=== PATIENT | male | born 1975 | race Caucasian/White ===

== ENCOUNTER 2019-08-26 16:57 | Emergency (ER) | payer OTHER ==
[~2019-08-26] VITALS: Ht 167.6 cm; Wt 104.3 kg
[2019-08-26 17:05] VITALS: Ht 167.6 cm; Wt 104.3 kg
[2019-08-26 20:40] VITALS: BP 167/111
== END 2019-08-26 20:41 | disposition other institution (70) ==
LOC: ED 16:57
DX: Z13.9 Encounter for screening, unspecified (principal); E11.65 Type 2 diabetes mellitus with hyperglycemia; F17.210 Nicotine dependence, cigarettes, uncomplicated; I10 Essential (primary) hypertension; Z98.890 Other specified postprocedural states; Z88.2 Allergy status to sulfonamides
CPT/HCPCS: 82962; J1815

== ENCOUNTER 2019-08-26 18:17 | Emergency (ER) | payer OTHER | END 2019-08-26 20:41 | disposition other institution (70) | LOC: ED 18:17 | DX: Z02.89 Encounter for other administrative examinations (principal) ==